=== PATIENT | female | born 1980 | race African-American/Black ===

== ENCOUNTER 2017-11-20 13:59 | Emergency (ER) | payer OTHER ==
[~2017-11-20] VITALS: Ht 152.4 cm; Wt 111.6 kg
[~2017-11-20 13:59] MED LIST: ASPIRIN325 PO; ASPIRIN81 M2 PO; CELEXA10 MG PO; HYDROCHLOROTHIA25 M1 PO; LEXAPRO 10 MG T10 MG PO; PROAIR HFA8.5 GM INH; TOPROL XL25 MG PO; VITAMIN B-12250 MC2 PO
[2017-11-20] MEDS ORDERED: MAXZIDE-25 MG1 EACH PO (14:12)
[2017-11-20] MEDS ORDERED: XANAX 0.25 MG0.25 MG PO (14:13)
[2017-11-20] MEDS ORDERED: LASIX 20 MG TAB20 MG PO (14:13)
[2017-11-20] MEDS ORDERED: WELLBUTRIN 100100 MG PO (14:13)
[2017-11-20 14:20] LABS: ABSOLUTE EOSINOPHILS 0.3 thou/uL (0.0-0.7); ABSOLUTE LYMPHOCYTES 2.2 thou/uL (0.8-5.3); ABSOLUTE MONOCYTES 0.9 thou/uL (0.0-1.2); ABSOLUTE NEUTROPHILS 7.7 thou/uL (1.6-8.1); BASOPHILS 0.3 %; EOSINOPHILS 2.4 %; HEMATOCRIT 33.4 % (37.0-47.0); HEMOGLOBIN 10.7 gm/dL (12.0-15.0); LYMPHOCYTES 19.9 %; MCH 25.6 pg (26.0-34.0); MCV 79.9 fL (80.0-100.0); MONOCYTES 8.2 %; NUCLEATED RBCS 0 /100WBC; PLATELET COUNT* 352 thou/uL (150-400); POLYS 69.2 %; RBC 4.18 mil/uL (4.20-5.00); RDW-CV 17.6 % (10.5-14.5); WBC 11.1 thou/uL (4.0-11.0)
[2017-11-20 14:32] LABS: URINE BILIRUBIN NEGATIVE (Negative); URINE BLOOD TRACE (Negative); URINE CLARITY CLEAR; URINE COLOR YELLOW; URINE GLUCOSE-RANDOM NEGATIVE (Negative); URINE KETONES NEGATIVE (Negative); URINE LEUKOCYTES 2+ (Negative); URINE NITRITE NEGATIVE (Negative); URINE PROTEIN NEGATIVE (Negative); URINE SPECIFIC GRAVITY <= 1.005 (1.005-1.030); URINE UROBILINOGEN 0.2 E.U./dl (0.2-1.0)
[2017-11-20 14:56] LABS: SQUAMOUS >10 Many /LPF (0-3)
[2017-11-20 14:57] LABS: BACTERIA None Seen /HPF (None Seen); CASTS None Seen /LPF (None Seen); CRYSTALS None Seen /LPF (None Seen); URINE RBC 0-2 Rare /HPF (0-2); URINE WBC 6-15 Few /HPF (0-5)
[2017-11-20 15:05] LABS: ALBUMIN 3.5 g/dL (3.4-5.0); ALKALINE PHOSPHATASE 92 U/L (46-116); ANION GAP 9 mmol/L (7-16); BUN 14 mg/dL (7-18); CALCIUM 8.8 mg/dL (8.5-10.1); CHLORIDE 101 mmol/L (98-107); CO2 30 mmol/L (21-32); CREATININE 1.1 mg/dL (0.6-1.3); GLUCOSE 102 mg/dL (70-99); LIPASE 224 U/L (73-393); POTASSIUM 3.5 mmol/L (3.5-5.1); SGOT 19 U/L (15-37); SGPT 36 U/L (30-65); SODIUM 140 mmol/L (136-145); TOTAL BILIRUBIN 0.1 mg/dL (<0.1-1.0); TOTAL PROTEIN 7.7 g/dL (6.4-8.2); TROPONIN-I LEVEL <0.06 ng/mL (<0.06)
[2017-11-20 15:38] LABS: AMP/METHAMP Negative (Negative); BARBITURATES Negative (Negative); BENZODIAZEPINES Negative (Negative); COCAINE Negative (Negative); METHADONE Negative (Negative); OPIATES Negative (Negative); PCP Negative (Negative); THC Negative (Negative)
[2017-11-20] MEDS ORDERED: BACTRIM DS TAB1 EACH PO (16:02)
[2017-11-20 16:15] VITALS: BP 134/82
--- NOTE | 2017-11-20 17:34 | EKG ---
[place] [address] ELECTROCARDIOGRAM REPORT Name: CRISTINE GREGORY Room: [facility]#: [id number] Admission: 11/20/17 Attend Phys: Discharge: 11/20/17 Date of : 78 Report #: [id number] THIS REPORT FOR: //name// [facility] ED Test Date: 2017-11-20 Test Time: 14:08:02 Pat Name: CRISTINE GREGORY Department: Room: Gender: Director [facility]: Jaymie PENDLETON : 1980 Requested By: Sharonda Henry Order Number: [id number] MD: Lj Roa Measurements Intervals [place] Rate: 74 P: 30 TN: 176 QRS: 6 QRSD: 92 T: 19 QT: 406 QTc: 451 Interpretive Statements Sinus rhythm Left ventricular hypertrophy Compared to ECG 11/07/2015 17:42:53 Left ventricular hypertrophy now present Electronically Signed On 11-20-2017 17:33:52 DISTRIBUTION ENGINEER by Lj Roa [email or web address] <ELECTRONICALLY SIGNED> By: Lj Roa MD, [facility] 11/20/17 1733 1408 1408 Lj Roa MD, [facility] /EPI
== END 2017-11-20 16:16 | disposition home or self-care (01) ==
LOC: M.ERS 13:59
PROVIDERS: Physician Assistant
DX: D64.9 Anemia, unspecified (principal); R07.9 Chest pain, unspecified; N39.0 Urinary tract infection, site not specified; I10 Essential (primary) hypertension; F41.9 Anxiety disorder, unspecified; F32.9 Major depressive disorder, single episode, unspecified; Z88.8 Allergy status to other drugs, medicaments and biological substances

== ENCOUNTER 2018-10-16 09:03 | Emergency (ER) | payer BC ==
[~2018-10-16] VITALS: Ht 152.4 cm; Wt 115.2 kg
[~2018-10-16 09:03] MED LIST changes: +BACTRIM DS TAB1 EACH PO; +LASIX 20 MG TAB20 MG PO; +MAXZIDE-25 MG1 EACH PO; +WELLBUTRIN 100100 MG PO; +XANAX 0.25 MG0.25 MG PO
[2018-10-16] MEDS ORDERED: AMLODIPINE BESY10 MG PO (09:30)
[2018-10-16 09:54] LABS: HEMATOCRIT 37.5 % (37.0-47.0); HEMOGLOBIN 12.5 gm/dL (12.0-15.0); MCH 29.1 pg (26.0-34.0); MCHC 33.2 g/dL (28.0-37.0); MCV 87.6 fL (80.0-100.0); MPV 7.2 fl. (7.2-11.1); RBC 4.28 mil/uL (4.20-5.00); RDW-CV 14.4 % (10.5-14.5); WBC 8.2 thou/uL (4.0-11.0)
[2018-10-16 10:07] LABS: ANION GAP 6 mmol/L (7-16); BUN 11 mg/dL (7-18); CALCIUM 8.9 mg/dL (8.5-10.1); CHLORIDE 100 mmol/L (98-107); CO2 33 mmol/L (21-32); GLUCOSE 94 mg/dL (70-99); POTASSIUM 3.6 mmol/L (3.5-5.1); SODIUM 139 mmol/L (136-145)
[2018-10-16 10:15] LABS: TROPONIN-I LEVEL <0.06 ng/mL (<0.06)
[2018-10-16 10:35] VITALS: BP 134/68
--- NOTE | 2018-10-17 10:02 | EKG ---
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 10/17/18 1002 1000 1000 Lj Roa MD, FACC /EPI
== END 2018-10-16 10:35 | disposition home or self-care (01) ==
LOC: M.ERS 09:03
PROVIDERS: Emergency Medicine Emergency Medical Services
DX: I10 Essential (primary) hypertension (principal); F32.9 Major depressive disorder, single episode, unspecified; F41.9 Anxiety disorder, unspecified; Z88.8 Allergy status to other drugs, medicaments and biological substances

== ENCOUNTER 2019-07-12 09:31 | Emergency (ER) | payer BC ==
[~2019-07-12] VITALS: Ht 152.4 cm; Wt 113.4 kg
[~2019-07-12 09:31] MED LIST changes: +AMLODIPINE BESY10 MG PO
[2019-07-12] MEDS ORDERED: CARVEDILOL3.125 MG PO (09:52)
[2019-07-12 11:35] LABS: ABSOLUTE EOSINOPHILS 0.3 thou/uL (0.0-0.7); ABSOLUTE LYMPHOCYTES 2.2 thou/uL (0.8-5.3); ABSOLUTE MONOCYTES 0.7 thou/uL (0.0-1.2); ABSOLUTE NEUTROPHILS 6.7 thou/uL (1.6-8.1); BASOPHILS 0.4 %; EOSINOPHILS 2.8 %; HEMATOCRIT 36.2 % (37.0-47.0); HEMOGLOBIN 11.9 gm/dL (12.0-15.0); LYMPHOCYTES 22.1 %; MCH 27.4 pg (26.0-34.0); MCHC 32.8 g/dL (28.0-37.0); MCV 83.5 fL (80.0-100.0); MONOCYTES 6.9 %; MPV 8.1 fl. (7.2-11.1); NUCLEATED RBCS 0 /100WBC; PLATELET COUNT* 340 thou/uL (150-400); POLYS 67.8 %; RBC 4.33 mil/uL (4.20-5.00); RDW-CV 16.2 % (10.5-14.5); WBC 9.9 thou/uL (4.0-11.0)
[2019-07-12 11:39] LABS: ANION GAP 7 mmol/L (7-16); BUN 11 mg/dL (7-18); CHLORIDE 104 mmol/L (98-107); CO2 28 mmol/L (21-32); GLUCOSE 86 mg/dL (70-99); POTASSIUM 3.7 mmol/L (3.5-5.1); SODIUM 139 mmol/L (136-145)
[2019-07-12 11:53] LABS: ALKALINE PHOSPHATASE 84 U/L (46-116); SGOT 17 U/L (15-37); SGPT 35 U/L (30-65); TOTAL PROTEIN 7.5 g/dL (6.4-8.2); TROPONIN-I LEVEL <0.06 ng/mL (<0.06)
[2019-07-12 11:56] LABS: TOTAL BILIRUBIN < 0.1 mg/dL (<0.1-1.0)
[2019-07-12 13:39] LABS: PROTIME 9.9 Seconds (9.20-11.50)
--- NOTE | 2019-07-12 15:01 | EKG ---
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: : 1980 Requested By: Sharonda Ortiz Order Number: [id number] MD: Keshav Ruggiero Measurements Intervals [place] Rate: 60 P: 10 [place]: 170 QRS: -6 QRSD: 89 T: 21 QT: 400 QTc: 400 Interpretive Statements Sinus rhythm Left ventricular hypertrophy, by old age Inferior infarct, old Anterior Q waves, possibly due to LVH Compared to ECG 10/16/2018 10:00:07 Myocardial infarct finding now present Q waves now present Sinus bradycardia no longer present Electronically Signed On 07-12-2019 15:01:34 CDT by Keshav Ruggiero [email or web address] <ELECTRONICALLY SIGNED> By: Keshav Ruggiero MD, FACC 07/12/19 1501 1001 1001 Keshav Ruggiero MD, FAC /EPI
[2019-07-12] MEDS ORDERED: HYDROCHLOROTHIA25 M2 PO (16:21)
[2019-07-12] MEDS ORDERED: CARAFATE 1 GM TA1 GM PO (16:24)
[2019-07-12] MEDS ORDERED: OMEPRAZOLE40 MG PO (16:24)
[2019-07-12 17:00] VITALS: BP 147/93
== END 2019-07-12 17:00 | disposition home or self-care (01) ==
LOC: M.ERS 09:31
PROVIDERS: Personal Emergency Response Attendant
DX: I16.0 Hypertensive urgency (principal); R07.89 Other chest pain; I10 Essential (primary) hypertension; F32.9 Major depressive disorder, single episode, unspecified; F41.9 Anxiety disorder, unspecified; Z88.8 Allergy status to other drugs, medicaments and biological substances